=== PATIENT | female | born 1945 | race Caucasian/White ===

== ENCOUNTER 2016-12-06 11:29 | Emergency (ER) | payer MEDICARE ==
[~2016-12-06] VITALS: Ht 149.9 cm; Wt 59.9 kg
[~2016-12-06 11:29] MED LIST: AIRGO ROLLING W1 PKT; AMLODIPINE BESYL5 MG PO; ATENOLOL; ATIVAN PO; CELEXA; CIPRO PO; CYMBALTA PO; DITROPAN5 MG PO; ENABLEX15 MG; ESZOPICLONE; FLOMAX0.4 M1 PO; HYDROCODON-ACE1 EAC1 PO; LISINOPRIL; LISINOPRIL PO; LISINOPRIL20 MG PO; LORTAB 5/500 TA1 TA1 PO; LUNESTA PO; MULTI-VITAMIN1 TAB; NORCO 7.5-3251 EACH PO; NORVASC PO; REMERON PO; TYLOX 5/500 CAP1 CAP PO; TYLOX1 CAP 5/50 PO; VIT B-12; VIT B-12 PO; VITAMIN D50000 UNIT PO
[2016-12-06 12:21] LABS: BASOPHIL# 0.1 X10e3 (0-0.3); BASOPHIL% 0.8 % (0-2.5); EOSINOPHIL% 0.2 % (0.0-7.0); HEMATOCRIT 44.1 % (35.0-45.0); HEMOGLOBIN 14.7 gm/dL (12.0-16.0); LYMPHOCYTE# 2.1 X10e3 (1.0-3.5); LYMPHOCYTE% 23.9 % (17.0-45.0); MEAN CORPUSCULAR HEMOGLOBIN 29.4 PG (28-34); MEAN CORPUSCULAR HGB CONC 33.4 g/dL (30-36); MEAN PLATELET VOLUME 9.2 FL (6.5-11.5); MONOCYTE# 0.4 X10e3 (0-1.0); MONOCYTE% 4.2 % (3.0-12.0); NEUTROPHIL# 6.2 X10e3 (1.5-7.1); NEUTROPHIL% 70.9 % (40-75); PLATELET COUNT 300 X10e3 (140-420); RED CELL DISTRIBUTION WIDTH 15.9 % (11.0-15.5); WHITE BLOOD COUNT 8.8 X10e3 (4.0-10.5)
[2016-12-06 12:24] LABS: DIFF IND NO
[2016-12-06 13:08] LABS: ALBUMIN SERUM 4.5 g/dL (3.5-5.0); BILIRUBIN, DIRECT 0.2 mg/dL (0.0-0.2); BILIRUBIN,INDIRECT 0.9 mg/dL (0.0-0.9); BILIRUBIN,TOTAL 1.1 mg/dL (0.2-2.0); BUN/CREATININE RATIO 16.66; CALCIUM SERUM 9.6 mg/dL (8.4-10.2); CREATININE SERUM 0.9 mg/dL (0.6-1.4); GLOM FILT RATE Estimated 65.3 mL/min (>60); POTASSIUM 3.7 mmol/L (3.5-5.1); PROTEIN TOTAL SERUM 7.9 g/dL (6.0-8.3)
[2016-12-06 14:58] LABS: URINE SOURCE CLEAN CATCH
[2016-12-06 15:18] LABS: URINE APPEARANCE CLEAR; URINE BACTERIA AUWI NEG (NEGATIVE); URINE BILIRUBIN NEG (NEG); URINE BLOOD 2+ (NEG); URINE COLOR YELLOW; URINE GLUCOSE NEG (NEG); URINE KETONE 2+ (NEG); URINE LEUKOCYTE ESTERASE NEG (NEG); URINE NITRATE NEG (NEG); URINE PROTEIN 1+ (NEG); URINE SPECIFIC GRAVITY 1.022 (1.003-1.035); URINE SQUAMOUS EPITHELIAL CELL OCC /[HPF]; UWBCS1 AUWI 0-2 (0-5)
[2016-12-06 15:19] LABS: CULTURE INDICATED? NO
== END 2016-12-06 16:09 | disposition home or self-care (01) ==
LOC: CED 11:29
PROVIDERS: Emergency Medicine
DX: R11.2 Nausea with vomiting, unspecified (principal); R10.9 Unspecified abdominal pain; I10 Essential (primary) hypertension; G89.29 Other chronic pain
CPT/HCPCS: 36415; 51701; 80048; 80076; 81003; 83690; 85025; 96361; 96374; 96375; 99284; J1885; J2405

== ENCOUNTER → 2017-01-06 | Outpatient (CLI) | payer MEDICARE ==
--- NOTE | ~2017-01-06 | MR112 ---
[facility] A Service of [facility] RADIOLOGY TEXT RESULTS PATIENT: EDENILSON FORTUNE LOCATION: [facility] : 49 UNIT #: [id number] AGE: [address]: Shivam Urbina MD SEX: F ORDER DR: [id number] [place] [id number] MR#: [id number] Acc #: [id number] NAME: EDENILSON FORTUNE : 1945 SEX: F STUDY DATE/TIME: 01/06/2017 13:00 UNIT: [facility] ROOM: STUDY DESCRIPTION: MR Lumbar WWo Contrast Attending Physician: Shivam Urbina M.D. Ordering Physician: Shivam Urbina M.D. Primary Care Physician: Shivam Urbina M.D. [facility]ENTER REPORT This report is preliminary unless electronic signature is present. EXAM Lumbar spine MRI with and without contrast date of study 01/06/2017 PROCEDURE Routine lumbar spine MRI with and without contrast COMPARISON CT abdomen and pelvis 09/09/2012 HISTORY Several year history of low back pain scoliosis and prior spinal surgery with 1 month history of increasing low back pain. FINDINGS There has been prior spinal fusion. There are unilateral left pedicle screws at L4, L5, and S1. There is also solid osseous union across the L3-4 disc. There is marked scoliosis, but no substantial martinez or retrolisthesis. There are some degenerative marrow signal changes but no marrow infiltration or replacement. Postcontrast images show no expected abnormal enhancement. The paraspinous tissues are unremarkable. There is no evidence of compression fracture at any level. Cord signal is normal and the tip of the conus is normal in position. At 12-1, there is no substantial canal stenosis but there is moderate to severe left foraminal stenosis. At L1-2 there is again no substantial canal stenosis but there is [id number] left and no right foraminal stenosis. At L2-3 there is moderate canal stenosis and mild right and moderate left foraminal stenosis. [facility] A Service of [facility] RADIOLOGY TEXT RESULTS PATIENT: EDENILSON FORTUNE LOCATION: [facility] : 49 UNIT #: [id number] AGE: [address]: Shivam Urbina MD SEX: F ORDER DR: At L3-4 there is no canal stenosis. At L4-5 and 5-1, there is no canal stenosis. There is probably no more than minimal foraminal narrowing at those lower levels but assessment is compromised due to metallic field distortion. IMPRESSION 1. Scoliosis and multilevel and postsurgical change which somewhat limits the study. There are some areas of degenerative canal and foraminal narrowing above the fusion. However, there is no fracture or other acute process identified. 2. Incidental note made of cholelithiasis. Dictated by... Sidney Wood M.D. THIS IS AN ELECTRONICALLY VERIFIED REPORT Sidney Wood M.D. at 01/09/2017 4:07 PM SAM/reilly TD: 01/07/2017 13:03 JOB #: [id number] MRI CENTER REPORT Page 1 of 1
[2017-01-06 14:20] LABS: POC - CREATININE 1.2 mg/dL (0.44-1.03)
== END | disposition home or self-care (01) ==
LOC: SMRI 07:22
PROVIDERS: Family Medicine
DX: M54.5 Low back pain (principal); M41.9 Scoliosis, unspecified; M47.896 Other spondylosis, lumbar region; M99.83 Other biomechanical lesions of lumbar region; M81.0 Age-related osteoporosis without current pathological fracture
CPT/HCPCS: 72158; 82565; A9581